=== PATIENT | female | born 1965 | race Caucasian/White ===

== ENCOUNTER 2018-04-13 09:05 | Outpatient (CLI) | payer MEDICARE, MEDICAID ==
--- NOTE | 2018-04-15 08:17 | RAD ---
BARIUM SWALLOW PERFORMED WITH SPEECH THERAPIST: 04/14/18 HISTORY: Dysphagia with feeding difficulties. Patient was given a variety of materials, puree, honey thick, liquid via cup, ground textured food, c hopped textured food. Premature spillage was seen to the vallecula level with puree and honey thick. No penetration or aspiration observed. IMPRESSION: Premature spillage. No aspiration of penetration noted. POS: RENÉE
== END 2018-04-13 09:06 | disposition home or self-care (01) ==
PROVIDERS: ATTEND Preventive Medicine Medical Toxicology
DX: R13.10 Dysphagia, unspecified (principal); R63.3 Feeding difficulties
CPT/HCPCS: 74230; G8996-GN-CJ; G8997-GN-CI; G8998-GN-CJ

== ENCOUNTER 2019-09-16 09:54 | Outpatient (CLI) | payer MEDICARE, MEDICAID ==
--- NOTE | 2019-09-19 13:08 | RAD ---
MODIFIED BARIUM SWALLOW: Date: 09/16/19 HISTORY: Pneumonitis due to inhalation of food and vomit. FINDINGS: This examination was performed by speech pathology and videotape is available. The patient was admini stered varying consistencies of barium during the examination. The patient's hand overlies the region of the vallecula and piriform sinuses on multiple images. There is evidence of premature spill of co ntrast in the vallecula prior to initiation of the swallowing mechanism. There is mild delay in forma tion of the bolus into the posterior pharynx. No aspiration or penetration was demonstrated. Prominent degenerative changes are partially visualized with prominent osteophytes anteriorly involvi ng the upper cervical spine. Fluoroscopy: Total fluoroscopy time was 30.4 seconds with total dose of 23.76 milligray. IMPRESSION: No aspiration demonstrated during exam. POS: RENÉE
== END 2019-09-16 09:55 | disposition home or self-care (01) ==
PROVIDERS: ATTEND Internal Medicine
DX: J69.0 Pneumonitis due to inhalation of food and vomit (principal)
CPT/HCPCS: 74230

== ENCOUNTER 2024-08-18 10:51 | Day surgery (SDC) | payer MEDICARE, MEDICAID ==
[2024-08-17 14:34] VITALS: BMI 24.4
[2024-08-18] MEDS ORDERED: Midazolam HCl 2 mg/2 ml Vial ONE (12:57)
[2024-08-18] MEDS ORDERED: PROPOFOL 20 ML ONE (13:03)
[2024-08-18] MEDS ORDERED: Lidocaine 1% PF 5 ML VIAL ONE (13:34)
== END 2024-08-18 14:28 | disposition home or self-care (01) ==
LOC: SDC 10:51
PROVIDERS: ATTEND Internal Medicine Gastroenterology
PROC: 0DJD8ZZ Inspection of Lower Intestinal Tract, Via Natural or Artificial Opening Endoscopic (ICD-10-PCS; principal; 2024-08-18)
DX: Z12.11 Encounter for screening for malignant neoplasm of colon (principal); G40.909 Epilepsy, unspecified, not intractable, without status epilepticus; F79 Unspecified intellectual disabilities; Z88.8 Allergy status to other drugs, medicaments and biological substances; Z79.899 Other long term (current) drug therapy; Z85.028 Personal history of other malignant neoplasm of stomach
CPT/HCPCS: G0104; J2250; J2704